=== PATIENT | female | born 1970 | race Caucasian/White ===

== ENCOUNTER 2021-11-17 13:48 | Inpatient (IN) | payer OTHER ==
[2021-11-17] MEDS ORDERED: NICOTINE 14MG/24HR PATCH TRANSDERM STA (14:15)
[2021-11-17] MEDS ORDERED: BACITRACIN OINT 1 EACH PACKET TOPICAL ONE (14:19)
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
[2021-11-17 20:45] LABS: Amphetamine Screen,Urine Not Detected (NotDetected); Barbiturate Screen,Urine Not Detected (NotDetected); Benzodiazepines Screen,Urine Not Detected (NotDetected); Cocaine Screen,Urine Not Detected (NotDetected); Methadone Screen, Urine Not Detected (NotDetected); Opiate Screen,Urine Not Detected (NotDetected); Oxycodone Screen, Urine Not Detected (NotDetected); Phencyclidine Screen,Urine Not Detected (NotDetected); Tricyclic Antidepressant,Urine Not Detected (NotDetected); Urn Cannabinoid Scrn Not Detected (NotDetected)
[2021-11-17] MEDS ORDERED: ACETAMINOPHEN TAB 325 MG TAB PO STA (21:15)
[2021-11-17] MEDS ORDERED: LORazepam 2 MG/ML INJ IV PRN ×3 (21:16)
[2021-11-17] MEDS ORDERED: THIAMINE 100 MG/ML 2 ML VIAL IM STA (21:16)
[2021-11-17] MEDS ORDERED: MAGNESIUM HYDROXIDE 2,400 MG/10 ML CUP PO PRN (22:57)
[2021-11-17] MEDS ORDERED: ACETAMINOPHEN TAB 325 MG TAB PO PRN (22:57)
[2021-11-17] MEDS ORDERED: MAG HYDROX/AL HYDROX/SIMETH 30 ML CUP PO PRN (22:57)
[2021-11-17] MEDS ORDERED: LORazepam 2 MG/ML INJ IM PRN (23:02)
[2021-11-17] MEDS ORDERED: traZODone HCL 50 MG TAB PO PRN (23:04)
[2021-11-18] MEDS: LORazepam 1 MG TAB PO PRN ×2 (00:13→21:02)
[2021-11-18 01:06] LABS: Appearance,Urine Clear (Clear); Bilirubin,Urine Negative (Negative); Blood,Urine Negative (Negative); Color,Urine Light Yellow; Glucose,Urine (UA) Negative (Negative); Ketones,Urine Negative (Negative); Leukocyte Esterase,Urine Negative (Negative); Nitrite,Urine Negative (Negative); Protein,Urine 1+ (Negative); RBC,Urine <1 /hpf (0-5); Specific Gravity,Urine 1.008 (1.001-1.035); Squamous Epithelial Cell,Urine 1 /hpf (0-4); Urobilinogen,Urine <2.0 mg/dL (<2.0); WBC,Urine <1 /hpf (0-5)
[2021-11-18] MEDS: LORATADINE 10 MG TAB PO SCH (08:02)
[2021-11-18] MEDS: CHOLECALCIFEROL 25 MCG (1000 IU) TABLET PO SCH (08:02)
[2021-11-18] MEDS: PANTOPRAZOLE 40 MG TABLET PO SCH (08:02)
[2021-11-18] MEDS: MULTIVITAMINS, THERA 1 EACH TAB PO SCH (08:03)
[2021-11-18] MEDS: THIAMINE 100 MG TAB PO SCH ×2 (08:03→17:45)
[2021-11-18] MEDS: KETOTIFEN 0.025% OPHTH DROPS 5 ML BTL BOTH EYES SCH ×2 (08:03→21:00)
[2021-11-18] MEDS: NICOTINE 14MG/24HR PATCH TRANSDERM SCH (08:26)
[2021-11-18] MEDS: PHYTONADIONE ORAL 5 MG/5 ML ORAL.SYRG PO SCH (08:41)
[2021-11-18 08:53] LABS: ALT 32 U/L (4-34); AST 41 U/L (14-36); African American GFR (CKD) >90 (>60 ml/min/1.73 sqM); Albumin 4.7 g/dL (3.5-5.0); Alkaline Phosphatase 106 U/L (38-126); Anion Gap 8 mmol/L; Blood Urea Nitrogen 13 mg/dL (7-17); Carbon Dioxide 27 mmol/L (22-30); Chloride 98 mmol/L (98-107); Glucose 99 mg/dL (74-99); Non-African American GFR(CKD) >90 (>60 ml/min/1.73 sqM); Sodium 133 mmol/L (137-145); Total Bilirubin 2.4 mg/dL (0.2-1.3); Total Protein 8.8 g/dL (6.3-8.2)
[2021-11-18 08:59] LABS: Basophils # (A) 0.1 k/uL (0-0.2); Basophils % (A) 1 %; Eosinophils # (A) 0.3 k/uL (0-0.7); Eosinophils % (A) 4 %; HCT 40.7 % (34.0-46.0); HGB 13.5 gm/dL (11.4-16.0); Lymphocytes # (A) 1.5 k/uL (1.0-4.8); Lymphocytes % (A) 23 %; MCH 30.7 pg (25.0-35.0); MCHC 33.2 g/dL (31.0-37.0); MCV 92.5 fL (80.0-100.0); Mean Platelet Volume 7.5; Monocytes # (A) 0.3 k/uL (0-1.0); Monocytes % (A) 5 %; Neutrophils # (A) 4.3 k/uL (1.3-7.7); Neutrophils % (A) 64 %; Platelet Count 231 k/uL (150-450); RDW 12.7 % (11.5-15.5); WBC 6.7 k/uL (3.8-10.6)
[2021-11-18] MEDS ORDERED: SERTRALINE 50 MG TAB PO STA (11:32)
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
[2021-11-18] MEDS ORDERED: QUEtiapine 50 MG TAB PO SCH (21:00)
[2021-11-19 00:30] VITALS: BP 156/95; PULSE 98; RESP 18
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
[2021-11-19] MEDS: PANTOPRAZOLE 40 MG TABLET PO SCH (08:34)
[2021-11-19] MEDS: THIAMINE 100 MG TAB PO SCH (08:34)
[2021-11-19] MEDS: NICOTINE 14MG/24HR PATCH TRANSDERM SCH (08:34)
[2021-11-19] MEDS: CHOLECALCIFEROL 25 MCG (1000 IU) TABLET PO SCH (08:34)
[2021-11-19] MEDS: MULTIVITAMINS, THERA 1 EACH TAB PO SCH (08:34)
[2021-11-19] MEDS: LORATADINE 10 MG TAB PO SCH (08:35)
[2021-11-19] MEDS: KETOTIFEN 0.025% OPHTH DROPS 5 ML BTL BOTH EYES SCH (08:35)
[2021-11-19] MEDS: PHYTONADIONE ORAL 5 MG/5 ML ORAL.SYRG PO SCH (08:57)
[2021-11-19] MEDS ORDERED: SERTRALINE 50 MG TAB PO SCH (09:00)
[2021-11-19] MEDS ORDERED: amLODIPine 10 MG TAB PO SCH (09:00)
[2021-11-19 09:59] VITALS: TEMP 98.1
--- NOTE | 2021-11-20 16:33 | P.DS ---
Providers Date of admission: 11/17/21 22:55 dISCHARGE SHE was seen prior to discharge. I introduced myself as psychiatrist on locum assigment to coordinate the discharge She was very eager to continue to the next phase of her recovery: to alcohol rehabiliation. I inquired whether her alcohol use in a binge fashion preceded or followed her period of low mood. She was highly ambivalent over her alcohol use later on she recognized for the time first her alcohol use which at times worsened her depression. She was uncertain whether she was drinking to cope with her mounting stressor. 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 I have not the opportunity of meeting with her ; however, he was very energetic in arranging her admission to the [facility] : residental focus. 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 She has not been introduced to the self-help group AA . She felt she had a better coping strategy with her work- and possibly interpersonal relationship stressors until her alcohol use worsened. I left her know the 12 steps of AA ; including feeling powerless over alcohol. Mental status exam: cooperative, lucid and goal directed. She did not see the benefit of staying on formal psychiatric unit with no structured group to remote sensing program manager her alcohol use. Affect; slightly anxious, congruent with her thought content. No perceptional disturbances or delusons of guilt. She did not have any suicidal or homicidal ideation. No hallucinations or delusons of guilt. No deficits in memory: short and tank terminal gauger, no short attention, Insight and jugement has improved comapred with premorbid level. I would like add no medical comlications arising from her alcohol use. Discharge diagnosis Alcohol use disorder, binge pattern no marked psychological or physiological dependence, depressive disorder NOS: not othersie specified to her episodic alcohol use. Discharge medications As reiterated in the previous section, copy of d/c to be sent to [facility] Expected date of discharge: 11/19/21 Attending physician: William Colon MD Consults: 11/17/21 22:57 Consult Physician ONCE Consulting Provider: [facility] Consult Reason/Comments: history and physical/medical management Do you want consulting provider notified?: Yes Primary care physician: Stated None - Discharge Diagnosis(es) (1) Major depressive disorder Status: Acute Priority: High (2) Alcohol dependence Status: Acute Priority: High (3) Nicotine dependence Status: Acute Priority: Low Hospital Course: Admission H and P: Hospital Course: Mental status exam: discharge diagnosis: Plan: Patient Condition at Discharge: Stable Plan - Discharge Summary Discharge Rx Participant: No New Discharge Prescriptions: New amLODIPine [Norvasc] 10 mg PO DAILY 30 Days tab QUEtiapine [SEROquel] 50 mg PO HS 30 Days tab Acetaminophen Tab [Tylenol] 650 mg PO Q4HR PRN tab PRN Reason: Pain/Discomfort Nicotine 14Mg/24Hr Patch [Habitrol] 1 patch TRANSDERM DAILY 14 Days patch Thiamine [Vitamin B-1] 100 mg PO BID-W/MEALS 30 Days tab Sertraline [Zoloft] 50 mg PO DAILY 30 Days tab Continue Multivitamins, Thera [Multivitamin (formulary)] 1 tab PO DAILY 30 Days tab Pantoprazole [Protonix] 40 mg PO DAILY 30 Days tab Cholecalciferol [Vitamin D3 (25 Mcg = 1000 Iu)] 25 mcg PO DAILY 30 Days tab Fexofenadine HCl [Tish Allergy] 180 mg PO DAILY 30 Days tab Olopatadine HCl [Pataday Once Daily Relief] 1 drop BOTH EYES DAILY #1 ml Phytonadione [Vitamin K] 5 mg PO DAILY 30 Days tab Discharge Medication List Acetaminophen Tab [Tylenol] 650 mg PO Q4HR PRN tab 11/19/21 [Rx] Cholecalciferol [Vitamin D3 (25 Mcg = 1000 Iu)] 25 mcg PO DAILY 30 Days tab 11/19/21 [Rx] Fexofenadine HCl [Tish Allergy] 180 mg PO DAILY 30 Days tab 11/19/21 [Rx] Multivitamins, Thera [Multivitamin (formulary)] 1 tab PO DAILY 30 Days tab 11/19/21 [Rx] Nicotine 14Mg/24Hr Patch [Habitrol] 1 patch TRANSDERM DAILY 14 Days patch 11/19/21 [Rx] Olopatadine HCl [Pataday Once Daily Relief] 1 drop BOTH EYES DAILY #1 ml 11/19/21 [Rx] Pantoprazole [Protonix] 40 mg PO DAILY 30 Days tab 11/19/21 [Rx] Phytonadione [Vitamin K] 5 mg PO DAILY 30 Days tab 11/19/21 [Rx] QUEtiapine [SEROquel] 50 mg PO HS 30 Days tab 11/19/21 [Rx] Sertraline [Zoloft] 50 mg PO DAILY 30 Days tab 11/19/21 [Rx] Thiamine [Vitamin B-1] 100 mg PO BID-W/MEALS 30 Days tab 11/19/21 [Rx] amLODIPine [Norvasc] 10 mg PO DAILY 30 Days tab 11/19/21 [Rx] Follow up Appointment(s)/Referral(s): Psychology, Industry [Other] - 11/30/21 2:15 pm (Myra Beavers please fill out online paperwork in email by 11/24 or appointment will be cancelled Zoom instructions will be in email ) [facility] [NON-STAFF] - 1 Week Patient Instructions/Handouts: How to Stop Smoking (DC), Depression (DC), Abuse of Alcohol (ED) Activity/Diet/Wound Care/Special Instructions: Activity and diet as tolerated. Avoid the use of street drugs and alcohol. Take all medications as prescribed. When you are in need of refills on your medications please contact your medical provider and/or outpatient psychiatrist to have this done. Please go to scheduled outpatient appointment for aftercare treatment. If symptoms return or become worse, call the crisis line at [phone] and/or go to the nearest emergency room for evaluation Discharge Disposition: OTHER INSTITUTION NOT DEFINED
== END 2021-11-19 14:35 | disposition other institution (70) | DRG 885 ==
LOC: EC 13:48 → 3MHU 22:55
PROVIDERS: ADMIT Psychiatry & Neurology Psychiatry; ATTEND Psychiatry & Neurology Psychiatry
DX: F31.81 Bipolar II disorder (principal); R45.851 Suicidal ideations; F10.20 Alcohol dependence, uncomplicated; F17.200 Nicotine dependence, unspecified, uncomplicated; F41.9 Anxiety disorder, unspecified; S50.812A Abrasion of left forearm, initial encounter; S61.511A Laceration without foreign body of right wrist, initial encounter; S61.512A Laceration without foreign body of left wrist, initial encounter; Z20.822 Contact with and (suspected) exposure to COVID-19; X78.9XXA Intentional self-harm by unspecified sharp object, initial encounter; S51.812A Laceration without foreign body of left forearm, initial encounter; Z62.810 Personal history of physical and sexual abuse in childhood; Z79.899 Other long term (current) drug therapy; Z81.1 Family history of alcohol abuse and dependence; Z71.41 Alcohol abuse counseling and surveillance of alcoholic
CPT/HCPCS: 80053; 80306; 81001; 82075; 83036; 84443; 85025; 87635; 99285